=== PATIENT | female | born 1985 | race Asian ===

== ENCOUNTER 2023-08-08 21:01 | Emergency (ER) | payer MEDICAID, SELFPAY ==
[2023-08-08 21:23] VITALS: BP 130/84; PULSE 86; RESP 18; TEMP 36.6; O2SAT 99; BMI 20.4
--- OUTSIDE RECORDS SUMMARY | 2023-08-08 22:19 | XMS_ITS | Patient Health Record ---
Author Name Unknown Organization Matt Escobedo MD [facility] Address [address] [place] [id number] Support Name Relationship Address Phone Nicole Hull Guarantor Unknown [phone] ALLERGIES No Known Allergies REASON FOR REFERRAL No Information SOCIAL HISTORY Sex Assigned At : Social History Observation Description Sex Assigned At Unknown PLAN OF TREATMENT No Information Insurance Providers Payer Name Payer Address Payer Phone Subscriber Number Group Number Insured Name Patient Relationship to Insured Coverage Start Date Coverage End Date CARES ACT Nicole Hull Self - patient is the insured
== END 2023-08-08 22:18 | disposition left against medical advice (07) ==
LOC: HO.ED 22:17
PROVIDERS: Emergency Provider Emergency Medicine
DX: R10.12 Left upper quadrant pain (principal); R10.32 Left lower quadrant pain; R21 Rash and other nonspecific skin eruption
CPT/HCPCS: 99281